=== PATIENT | female | born 1985 | race Two or more races ===

== ENCOUNTER 2016-12-17 10:47 | Inpatient (IN) | payer OTHER ==
[2016-12-17 11:16] VITALS: BMI 33.5
[2016-12-17] MEDS ORDERED: WITCH HAZEL 50% (TUCKS) 40 PAD/JAR PAD TP PRN (11:26)
[2016-12-17] MEDS ORDERED: BISACODYL 10 MG SUPP.RECT RC PRN (11:26)
[2016-12-17] MEDS ORDERED: BENZOCAINE 20% 57 GM BOTTLE TP PRN (11:26)
[2016-12-17] MEDS ORDERED: BENZOCAINE 28 GM HEMORRHOIDAL OINTMENT TP PRN (11:26)
[2016-12-17] MEDS ORDERED: METHYLERGONOVINE MALEATE 0.2 MG/1 ML AMP IM PRN (11:26)
[2016-12-17] MEDS ORDERED: ELECTROLYTE-148 SOLN 1,000 ML IV SCH (11:30)
[2016-12-17] MEDS ORDERED: OXYTOCIN 20 UNITS in 0.9% NS 1,000 ML IV SCH (11:30)
--- NOTE | 2016-12-17 11:31 | HP ---
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: No: Alzheimer's, CVA, Dementia, Migraine, Multiple Sclerosis, Peripheral Neuropathy, Parkinson's, Seizure, Syncope, TIA, Vertigo, Other Cardiovascular: No: AFIB, Aneurysm, Aortic Insufficiency, Aortic Stenosis, CAD, CHF, Deep Vein Thrombosis, HTN, Hyperlipdemia, IA, Mitral Insufficiency, Mitral Stenosis, Murmur, Pulmonary Hypertension, Other Pulmonary: No: Asthma, Bronchitis, Cancer, COPD, O2 Dependent, Pneumonia, Previously Intubated, Pulmonary Embolus, Pulmonary Fibrosis, Sleep Apnea, Other Gastrointestinal: No: Ascites, Cancer, Constipation, Crohn's Disease, Diverticulitis, Diverticulosis, Esophageal Varices, Gastritis, GERD, GI Bleed, Hemorrhoids, Hiatal Hernia, Inflamatory Bowel Disease, Irritable Bowel Disease, Pancreatitis, Peptic Ulcer Disease, Ulcerative Colitis, Other Hepatobiliary: No: Cirrhosis, Cholelithiasis, Cholecystitis, Choledocholithiasis , Hepatitis A, Hepatitis B, Hepatitis C, Other Renal/: No: Renal Failure, Renal Inusuff, BPH, Cancer, Hematuria, Hemodialysis , Neurogenic Bladder, Renal Calculi, UTI, Other Reproductive: No: Ectopic , Endometriosis, Fibroids, PID, Polycystic Ovary Syndrome, Postmenopausal, Other ...: 3 ...Para: 2 Psych: No: Addictions, Anxiety, Bipolar, Depression, Panic, Psychosis, Schizophrenia, Other Musculoskeletal: No: Bursitis, Chronic low back pain, Hemiparesis, Hemiplegia, Osteoarthritis, Paraplegia, Other Rheumatology: No: Fibromyalgia, Gout, Lupus, Rheumatoid Arthritis, Sarcoidosis, Vasculitis, Other ENT: No: Allergic Rhinitis, Sinusitis, Other Endocrine: No: [place]'s Disease, White's Disease, Diabetes Insipidus, Diabetes Mellitus, Hyperparathyroidism, Hyperthyroidism, Hypothyroidism, Osteopenia, SIADH, Other - Past Surgical History Past Surgical History: No: None, AAA Repair, AICD, Amputation, Appendectomy, Arthrosocopy, AV Fistula/Graft, Bariatric Surgery, Breast Biopsy, Bypass, CABG, Carotid Endarterectomy, Cataract Removal, Cholecystectomy, Colectomy, Colonoscopy, Colostomy, Craniotomy, , Cystectomy, Hernia Repair, Hysterectomy, Ileal Conduit, Ileosotomy, Joint Replacement, Kidney Transplant, Laminectomy, Liver Transplant, Mastectomy, Nephrectomy, Oopherectomy, Orchiectomy, Permanent Pacemaker, Prostatectomy, Splenectomy, Stent, Thoracotomy , TURP, Tonsillectomy, Tubal Ligation, Upper Endoscopy, Valve Replacement, Vasectomy, Vein Stripping/Ligation - Advance Directives Advance Directives: No: Living Will, Health Care Proxy, DNR, Organ Donor, Tissue Donor, MOLST - Smoking History Smoking history: Never smoked Have you smoked in the past 12 months: No - Alcohol/Substance Use Hx Alcohol Use: No History of Substance Use: denies: None, Cocaine, Heroin, Marijuana, Prescription , Tranquilizers - Social History Usual Living Arrangement: No: Alone, With Spouse, With Parent, With Significant Other, With Child, Assisted Living, Care Home, Other Home Medications - Allergies Allergies/Adverse Reactions: Allergies Allergy/AdvReac Type Severity Reaction Status Date / Time No Known Allergies Allergy Verified 12/16/16 17:53 - Home Medications Home Medications: Ambulatory Orders Ferrous Sulfate 1 tab PO DAILY 12/16/16 Vit #108/Iron/FA [ One Tablet] 1 tab PO DAILY 12/16/16 Review of Systems - Review of Systems Constitutional: reports: No Symptoms Eyes: reports: No Symptoms HENT: reports: No Symptoms Neck: reports: No Symptoms Cardiovascular: reports: No Symptoms Respiratory: reports: No Symptoms Gastrointestinal: reports: No Symptoms Genitourinary: reports: No Symptoms Breasts: reports: No Symptoms Reported Musculoskeletal: reports: No Symptoms Integumentary: reports: No Symptoms Neurological: reports: No Symptoms Endocrine: reports: No Symptoms Hematology/Lymphatic: reports: No Symptoms Psychiatric: reports: No Symptoms Physical Examination Constitutional: Yes: Well Nourished Eyes: Yes: WNL HENT: Yes: WNL Neck: Yes: WNL, Rigid Respiratory: Yes: WNL Gastrointestinal: Yes: WNL ...Rectal Exam: Yes: WNL (9cm) Extremities: Yes: WNL Neurological: Yes: WNL Assessment/Plan as above admit labs prepare for delivery
[2016-12-17 12:35] LABS: CALCIUM 8.2 mg/dL (8.5-10.1); COCKROFT - GAULT 109.497; CREATININE 0.9 mg/dL (0.55-1.02)
[2016-12-17 12:38] LABS: BASOPHIL 0.1 % (0-2.0); INR 0.96 (0.82-1.09); MCH 32.8 pg (25.7-33.7); MCHC 33.9 g/dl (32.0-36.0); MEAN CELL VOLUME 96.6 fl (80-96); MEAN PLT VOLUME 10.4 fl (7.5-11.1); NEUTROPHILS 93.6 % (42.8-82.8); PLATELET COUNT 125 K/MM3 (134-434); PROTHROMBIN TIME (PATIENT) 10.5 SEC (9.98-11.88); WHITE BLOOD COUNT 15.9 K/mm3 (4.0-10.0)
[2016-12-17 12:41] LABS: ACTIVATED PTT 28.5 SECONDS (26.9-34.4)
[2016-12-17] MEDS: IBUPROFEN 600 MG TABLET (FP) PO PRN (22:58)
[2016-12-17] MEDS: ACETAMINOPHEN 325 MG TABLET (FP) PO PRN (23:00)
[2016-12-18 08:33] LABS: BASOPHIL 0.2 % (0-2.0); EOSINOPHIL 0.5 % (0-4.5); MCHC 34.2 g/dl (32.0-36.0); MEAN CELL VOLUME 96.5 fl (80-96); MEAN PLT VOLUME 9.8 fl (7.5-11.1); PLATELET COUNT 105 K/MM3 (134-434); WHITE BLOOD COUNT 13.1 K/mm3 (4.0-10.0)
[2016-12-18] MEDS: DIPHTH,PERTUSS(ACELL),TET 0.5 ML DISP.SYRIN IM ONE (10:00)
[2016-12-18] MEDS ORDERED: INFLUENZA VACCINE 60 MCG/0.5 ML (P/F DISP.SYRIN 16-17) IM ONE (10:00)
--- NOTE | 2016-12-18 20:19 | PN ---
Post Progress Note - Subjective Subjective: 31 yo Para 3 status post normal vaginal delivery, seen and evaluated. Doing well. Post Day: 1 Type of Delivery: Vital Signs: Vital Signs Temperature 97.6 F 12/18/16 09:00 Pulse Rate 65 12/18/16 09:00 Respiratory Rate 18 12/18/16 09:00 Blood Pressure 130/94 12/18/16 09:00 O2 Sat by Pulse Oximetry (%) 100 12/17/16 12:30 Breast Exam: Yes: Soft Uterus: Yes: Fundus Firm Incision: Yes: Dressing dry and intact Abdomen/GI: Yes: Abdomen soft, Tolerating PO Lochia: Yes: Rubra Lochia, amount: Small Extremities: Yes: Calves non-tender Perineum: Yes: Intact Activity: Ambulating - Labs Labs: CBC WBC 13.1 K/mm3 (4.0-10.0) H 12/18/16 08:00 RBC 3.34 M/mm3 (3.60-5.2) L 12/18/16 08:00 Hgb 11.0 GM/dL (10.7-15.3) D 12/18/16 08:00 Hct 32.2 % (32.4-45.2) L 12/18/16 08:00 MCV 96.5 fl (80-96) H 12/18/16 08:00 MCHC 34.2 g/dl (32.0-36.0) 12/18/16 08:00 RDW 14.0 % (11.6-15.6) 12/18/16 08:00 Plt Count 105 K/MM3 (134-434) L 12/18/16 08:00 MPV 9.8 fl (7.5-11.1) 12/18/16 08:00 Neutrophils % 73.0 % (42.8-82.8) D 12/18/16 08:00 Lymphocytes % 19.4 % (8-40) D 12/18/16 08:00 Monocytes % 6.9 % (3.8-10.2) D 12/18/16 08:00 Eosinophils % 0.5 % (0-4.5) D 12/18/16 08:00 Basophils % 0.2 % (0-2.0) 12/18/16 08:00 Problem List - Problems (1) Status post vaginal delivery Code(s): [id number] - Assessment/Plan Status post vaginal delivery Stable Continue routine care
--- NOTE | 2016-12-18 20:21 | DS ---
[id number] Rate 18 12/18/16 09:00 Blood Pressure 130/94 12/18/16 09:00 O2 Sat by Pulse Oximetry (%) 100 12/17/16 12:30 Constitutional: Yes: Well Nourished Eyes: Yes: Conjunctiva Clear HENT: Yes: Atraumatic Neck: Yes: Supple, Trachea Midline Cardiovascular: Yes: Regular Rate and Rhythm Respiratory: Yes: Regular, CTA Bilaterally Gastrointestinal: Yes: Normal Bowel Sounds Pelvis: Yes: WNL Cervix: Yes: Normal Uterus: Yes: Normal ....Post : Yes: Uterus firm, Moderate lochia rubra Breast(s): Yes: Other (No engorgement) Neurological: Yes: Alert, Oriented ...Motor Strength: WNL Psychiatric: Yes: Alert, Oriented Labs: CBC, BMP 12/18/16 08:00 12/17/16 11:50 Delivery - Delivery Type of Anesthesia: Local Episiotomy/Laceration: Midline EBL (cc): 350 Delivery, Single - Stages of Labor Date 1st Stage Initiatied: 12/17/16 Time 1st Stage Initiated: 03:00 Date 2nd Stage Initiated: 12/17/16 Time 2nd Stage Initiated: 11:00 Date of Delivery: 12/17/16 Time of Delivery: 11:17 Time Placenta Delivered: 11:21 - 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 Drink at least eight (8) glasses of water daily in addition to other fluids. Ct Regular diet MEDICATIONS: Continue vitamins and iron as previously directed. Motrin and Tylenol may be taken for minor discomfort. ACTIVITY: Mild to moderate exercise may be started in two (2) weeks. Take frequent rest periods. Resume normal activity after six (6) week check up. WOUND CARE OF OPERATIVE SITE: Continue use of perineal bottle until vaginal discharge stops. Keep area clean. Shower daily. Keep abdominal wound dry. Report any drainage or redness to physician. Tub baths, tampons and douches are not permitted for [address] Breast feeding & or Bottle feeding BREAST CARE: (For those that are not breast feeding): If engorgement occurs: Wear tight fitting bra. Take Tylenol or Motrin for pain. Apply cold packs (ice in bags to each breast ) FAMILY PLANNING: There are many control alternatives to pursue and they should be discussed at your first office visit. You may resume sexual activity after your six (6) week check up. (Remember, breast feeding is not a contraceptive) NEXT PHYSICIAN APPOINTMENT: Be certain to call for a six (6) week appointment, unless otherwise directed. Call Clinic or got to Emergency Dept if you have any of the following: Heavy vaginal bleeding Painful urination Leg pain Unusual odor noted to vaginal bleeding High fever Red streaking noted on breast Referrals: Nik Shah MD [Staff Physician] - Disposition: HOME - Home Medications Comprehensive Discharge Medication List: Ambulatory Orders Ferrous Sulfate 1 tab PO DAILY 12/16/16 Vit #108/Iron/FA [ One Tablet] 1 tab PO DAILY 12/16/16 Acetaminophen [Tylenol .Regular Strength -] 650 mg PO Q3H PRN #0 tablet Ibuprofen [Motrin -] 200 mg PO Q4H PRN #0 tablet 12/18/16
[2016-12-18] MEDS: IBUPROFEN 600 MG TABLET (FP) PO PRN (21:30)
[2016-12-18] MEDS: ACETAMINOPHEN 325 MG TABLET (FP) PO PRN (21:31)
[2016-12-18] MEDS ORDERED: SENNOSIDES/DOCUSATE COMBO (SENNA PLUS) TABLET (UD) PO PRN (22:00)
--- NOTE | 2016-12-19 09:36 | PN ---
Post Progress Note - Subjective Subjective: no complains Post Day: 2 Type of Delivery: Vital Signs: Vital Signs Temperature 99.2 F 12/18/16 22:00 Pulse Rate 100 H 12/18/16 22:00 Respiratory Rate 18 12/18/16 22:00 Blood Pressure 133/83 12/18/16 22:00 O2 Sat by Pulse Oximetry (%) 100 12/17/16 12:30 Breast Exam: Yes: Soft. No: Engorged Uterus: Yes: Fundus Firm, Fundus below umbilicus, Non-tender Lochia: Yes: Rubra Lochia, amount: Moderate Extremities: Yes: Calves non-tender, Edema Perineum: Yes: Intact Activity: Ambulating - Labs Labs: CBC WBC 13.1 K/mm3 (4.0-10.0) H 12/18/16 08:00 RBC 3.34 M/mm3 (3.60-5.2) L 12/18/16 08:00 Hgb 11.0 GM/dL (10.7-15.3) D 12/18/16 08:00 Hct 32.2 % (32.4-45.2) L 12/18/16 08:00 MCV 96.5 fl (80-96) H 12/18/16 08:00 MCHC 34.2 g/dl (32.0-36.0) 12/18/16 08:00 RDW 14.0 % (11.6-15.6) 12/18/16 08:00 Plt Count 105 K/MM3 (134-434) L 12/18/16 08:00 MPV 9.8 fl (7.5-11.1) 12/18/16 08:00 Neutrophils % 73.0 % (42.8-82.8) D 12/18/16 08:00 Lymphocytes % 19.4 % (8-40) D 12/18/16 08:00 Monocytes % 6.9 % (3.8-10.2) D 12/18/16 08:00 Eosinophils % 0.5 % (0-4.5) D 12/18/16 08:00 Basophils % 0.2 % (0-2.0) 12/18/16 08:00 Assessment/Plan stable. plan discharge today
[2016-12-19 11:18] VITALS: BP 122/77; PULSE 62; TEMP 97.4
== END 2016-12-19 12:05 | disposition home or self-care (01) | DRG 560 ==
LOC: JLDR 10:47 → J3W 14:45
PROVIDERS: ADMIT Obstetrics & Gynecology; ATTEND Obstetrics & Gynecology
PROC: 0W8NXZZ Division of Female Perineum, External Approach (ICD-10-PCS; principal; 2016-12-17)
PROC: 10E0XZZ Delivery of Products of Conception, External Approach (ICD-10-PCS; 2016-12-17)
DX: O77.0 Labor and delivery complicated by meconium in amniotic fluid (principal); Z3A.39 39 weeks gestation of pregnancy; Z37.0 Single live birth
CPT/HCPCS: 36415; 59409; 80048; 85025; 85610; 85730; 86593; 86850; 86900; 86901; 90686; 90715; G0008

== ENCOUNTER 2023-01-08 10:00 | Inpatient (IN) | payer OTHER ==
[2023-01-14 09:44] VITALS: BMI 32.5
[2023-01-14] MEDS: ELECTROLYTE-148 SOLN 1,000 ML IV SCH ×2 (09:50→11:45)
[2023-01-14 10:00] LABS: BASO % 0.1 % (0-2.0); EOS % 1.1 % (0-4.5); HEMATOCRIT 35.2 % (32.4-45.2); LYMPH % 16.9 % (8-40); MCH 32.6 pg (25.7-33.7); MCHC 34.2 g/dl (32.0-36.0); MEAN CELL VOLUME 95.6 fl (80-96); MEAN PLT VOLUME 8.7 fl (7.5-11.1); MONO % 6.9 % (3.8-10.2); PLATELET COUNT 184 10^3/uL (134-434); RBC 3.69 M/mm3 (3.60-5.2); RDW 13.3 % (11.6-15.6); WHITE BLOOD COUNT 9.8 K/mm3 (4.0-10.0)
[2023-01-14 10:04] LABS: INR 1.03 (0.83-1.09)
[2023-01-14 10:07] LABS: ACTIVATED PTT 29.6 SECONDS (25.2-36.5)
[2023-01-14 10:21] LABS: POTASSIUM 3.7 mmol/L (3.5-5.1)
[2023-01-14 10:23] LABS: BLOOD UREA NITROGEN 4.8 mg/dL (7-18); CALCIUM 8.7 mg/dL (8.5-10.1)
[2023-01-14 10:26] LABS: CREATININE 0.5 mg/dL (0.55-1.3)
[2023-01-14] MEDS ORDERED: CITRIC ACID/SODIUM CITRATE 30 ML UNIT-DOSE CUP PO ONE (11:03)
[2023-01-14] MEDS ORDERED: morphine SULFATE/PF 1 MG/2 ML (2cc Syringe - QUVA) ONE (13:00)
[2023-01-14] MEDS ORDERED: FENTANYL CITRATE/PF 50 MCG/ML VIAL ONE (13:00)
[2023-01-14] MEDS ORDERED: KETOROLAC TROMETHAMINE 30 MG/1 ML VIAL ONE (13:01)
[2023-01-14] MEDS ORDERED: ONDANSETRON 4 MG/2 ML VIAL ONE (13:01)
[2023-01-14] MEDS ORDERED: OXYTOCIN 10 UNITS/ML VIAL ONE ×2 (13:01→13:21)
[2023-01-14] MEDS ORDERED: ceFAZolin SODIUM 1 GM VIAL ONE ×2 (13:01→13:15)
[2023-01-14] MEDS ORDERED: PHENYLEPHRINE HCL 10 MG/1 ML SINGLE DOSE VIAL ONE (13:15)
[2023-01-14] MEDS ORDERED: METHYLERGONOVINE MALEATE 0.2 MG/1 ML AMP IM PRN (13:56)
[2023-01-14] MEDS ORDERED: ACETAMINOPHEN 325 MG TABLET (FP) PO PRN (13:56)
[2023-01-14] MEDS ORDERED: morphine SULFATE/PF 1 MG/2 ML (2cc Syringe - QUVA) SPIN ONE (14:04)
[2023-01-14] MEDS ORDERED: ONDANSETRON 4 MG/2 ML VIAL IVPUSH PRN (14:04)
[2023-01-14] MEDS ORDERED: ACETAMINOPHEN 1000 MG/100 ML BAG IVPB ONE (14:05)
[2023-01-14] MEDS ORDERED: OXYTOCIN 20 UNITS in 0.9% NS 20 UNIT/1,000 ML INFUS.BAG IV ONE (15:12)
[2023-01-14] MEDS: OXYTOCIN 20 UNITS in 0.9% NS 20 UNIT/1,000 ML INFUS.BAG IV SCH (15:20)
[2023-01-14] MEDS: IBUPROFEN 800 MG/8 ML IJ IVPB PRN (17:23)
[2023-01-15] MEDS: OXYTOCIN 20 UNITS in 0.9% NS 20 UNIT/1,000 ML INFUS.BAG IV SCH (01:15)
[2023-01-15] MEDS: IBUPROFEN 800 MG/8 ML IJ IVPB PRN ×2 (01:15→09:14)
[2023-01-15] MEDS ORDERED: oxyCODONE HCL 5 MG TABLET PO PRN (01:56)
[2023-01-15 08:37] LABS: BASO % 0.1 % (0-2.0); EOS % 1.1 % (0-4.5); HEMATOCRIT 32.1 % (32.4-45.2); LYMPH % 11.1 % (8-40); MCH 32.7 pg (25.7-33.7); MCHC 34.2 g/dl (32.0-36.0); MEAN CELL VOLUME 95.8 fl (80-96); MEAN PLT VOLUME 8.2 fl (7.5-11.1); MONO % 6.1 % (3.8-10.2); NEUT % 81.6 % (42.8-82.8); PLATELET COUNT 156 10^3/uL (134-434); RBC 3.36 M/mm3 (3.60-5.2); RDW 13.9 % (11.6-15.6); WHITE BLOOD COUNT 10.9 K/mm3 (4.0-10.0)
[2023-01-15] MEDS ORDERED: BISACODYL 10 MG SUPP.RECT RC PRN (13:56)
[2023-01-15] MEDS: IBUPROFEN 600 MG TABLET (FP) PO PRN ×2 (16:03→19:53)
[2023-01-15] MEDS: SIMETHICONE 80 MG TAB.CHEW (FP) PO PRN ×2 (16:04→19:53)
[2023-01-16] MEDS: IBUPROFEN 600 MG TABLET (FP) PO PRN ×4 (00:05→18:26)
[2023-01-16] MEDS: SIMETHICONE 80 MG TAB.CHEW (FP) PO PRN ×4 (00:05→18:26)
[2023-01-16 10:36] VITALS: RESP 17
[2023-01-17] MEDS: SIMETHICONE 80 MG TAB.CHEW (FP) PO PRN ×3 (00:14→09:22)
[2023-01-17] MEDS: IBUPROFEN 600 MG TABLET (FP) PO PRN ×3 (00:14→09:19)
[2023-01-17 07:16] LABS: BASO % 0.3 % (0-2.0); EOS % 2.8 % (0-4.5); HEMATOCRIT 29.3 % (32.4-45.2); HEMOGLOBIN 9.9 GM/dL (10.7-15.3); LYMPH % 21.8 % (8-40); MCH 32.9 pg (25.7-33.7); MCHC 33.8 g/dl (32.0-36.0); MEAN CELL VOLUME 97.3 fl (80-96); MEAN PLT VOLUME 8.4 fl (7.5-11.1); MONO % 6.2 % (3.8-10.2); NEUT % 68.9 % (42.8-82.8); PLATELET COUNT 197 10^3/uL (134-434); RBC 3.01 M/mm3 (3.60-5.2); RDW 13.6 % (11.6-15.6); WHITE BLOOD COUNT 8.4 K/mm3 (4.0-10.0)
[2023-01-17 09:47] VITALS: BP 104/68; PULSE 65; TEMP 97.5
== END 2023-01-17 15:10 | disposition home or self-care (01) | DRG 540 ==
LOC: JLDR 01-14 08:08 → J3W 01-14 15:25
PROVIDERS: ADMIT Obstetrics & Gynecology; ATTEND Obstetrics & Gynecology
PROC: 10D00Z1 Extraction of Products of Conception, Low, Open Approach (ICD-10-PCS; principal; 2023-01-14)
PROC: 0UL70ZZ Occlusion of Bilateral Fallopian Tubes, Open Approach (ICD-10-PCS; 2023-01-14)
DX: O48.0 Post-term pregnancy (principal); Z3A.40 40 weeks gestation of pregnancy; O32.2XX0 Maternal care for transverse and oblique lie, not applicable or unspecified; Z37.0 Single live birth; Z30.2 Encounter for sterilization
CPT/HCPCS: 36415; 80048; 85025; 85610; 85730; 86780; 86850; 86900; 86901; 88302-TC; 88307-TC; 94010

== ENCOUNTER 2023-10-11 22:35 | Inpatient (IN) | payer OTHER ==
[2023-10-12] MEDS ORDERED: ONDANSETRON 4 MG/2 ML VIAL ONE ×2 (00:29→04:03)
[2023-10-12] MEDS ORDERED: ACETAMINOPHEN INJECTION 100 ML IVPB ONE ×2 (00:29→12:25)
[2023-10-12] MEDS: ACETAMINOPHEN 1000 MG/100 ML BAG IVPB ONE ×2 (00:38→07:59)
[2023-10-12 00:52] LABS: BASO % 0.4 % (0-2.0); EOS % 0.3 % (0-4.5); HEMATOCRIT 40.9 % (32.4-45.2); MCHC 34.2 g/dl (32.0-36.0); MEAN CELL VOLUME 93.7 fl (80-96); MEAN PLT VOLUME 8.7 fl (7.5-11.1); MONO % 5.1 % (3.8-10.2); NEUT % 73.2 % (42.8-82.8); PLATELET COUNT 219 10^3/uL (134-434); RBC 4.37 M/mm3 (3.60-5.2); RDW 13.9 % (11.6-15.6); WHITE BLOOD COUNT 10.5 K/mm3 (4.0-10.0)
[2023-10-12 00:56] LABS: INR 1.19 (0.83-1.09); PROTHROMBIN TIME (PATIENT) 13.8 SEC (9.7-13.0)
[2023-10-12 00:59] LABS: ACTIVATED PTT 34.1 SECONDS (25.2-36.5)
[2023-10-12 01:02] LABS: POTASSIUM 3.6 mmol/L (3.5-5.1)
[2023-10-12 01:04] LABS: ALBUMIN 3.5 g/dl (3.4-5.0); BLOOD UREA NITROGEN 5.2 mg/dL (7-18); CALCIUM 8.6 mg/dL (8.5-10.1); MAGNESIUM 1.8 mg/dL (1.8-2.4)
[2023-10-12 01:07] LABS: CREATININE 0.7 mg/dL (0.55-1.3)
[2023-10-12 01:09] LABS: BILIRUBIN,TOTAL 2.3 mg/dL (0.2-1); TOT PROT 7.2 g/dl (6.4-8.2)
[2023-10-12 01:20] LABS: URINE APPEARANCE CLEAR; URINE BILIRUBIN NEGATIVE (NEGATIVE); URINE COLOR YELLOW; URINE GLUCOSE (UA) NEGATIVE (NEGATIVE); URINE KETONE 2+ (NEGATIVE); URINE LEUK ESTERASE NEGATIVE (NEGATIVE); URINE NITRITE NEGATIVE (NEGATIVE); URINE PROTEIN NEGATIVE (NEGATIVE)
[2023-10-12] MEDS ORDERED: FAMOTIDINE 20 MG/50 ML IVPB 20 MG/50 ML MG IVPB ONE (01:20)
[2023-10-12] MEDS: FAMOTIDINE 20 MG/50 ML IVPB 20 MG/50 ML MG IVPB ONE (01:25)
[2023-10-12] MEDS: ONDANSETRON 4 MG/2 ML VIAL IVPUSH ONE ×2 (01:25→04:11)
[2023-10-12] MEDS: LACTATED RINGERS SOLUTION 1000 ML INFUS.BAG IV ONE (02:34)
[2023-10-12 03:22] LABS: BILIRUBIN,DIRECT 0.6 mg/dL (0.0-0.2)
[2023-10-12] MEDS ORDERED: PIPERACILLIN/TAZOB 4.5 GM 4.5 GM/100 ML BAG IVPB ONE (03:39)
[2023-10-12] MEDS: PIPERACILLIN/TAZOB 4.5 GM 4.5 GM in DEXTROSE 5%-WATER 100 ML IVPB ONE (03:45)
[2023-10-12] MEDS: morphine CARPU-JECT 2 MG/1 ML DISP.SYRIN IVPUSH ONE (04:11)
[2023-10-12] MEDS: SODIUM CHLORIDE 1,000 ML IV SCH (04:16)
[2023-10-12] MEDS ORDERED: ACETAMINOPHEN 1000 MG/100 ML BAG IVPB PRN ×2 (06:53→13:39)
[2023-10-12] MEDS ORDERED: ONDANSETRON 4 MG/2 ML VIAL IVPUSH PRN ×2 (06:54→13:39)
[2023-10-12 08:30] VITALS: BMI 27.1
[2023-10-12] MEDS: PIPERACILLIN/TAZOB 3.375 GM 3.375 GM in DEXTROSE 5%-WATER - 50 ML IVPB SCH ×2 (09:41→17:24)
[2023-10-12] MEDS ORDERED: PIPERACILLIN/TAZOB 3.375 GM 3.375 GM in DEXTROSE 5%-WATER - 50 ML IVPB SCH (10:00)
[2023-10-12] MEDS ORDERED: BUPIVACAINE HCL/PF 0.25% (2.5MG/ML) 10 ML VIAL ONE (11:11)
[2023-10-12] MEDS ORDERED: MIDAZOLAM HCL 2 MG/2 ML SINGLE DOSE VIAL ONE (11:16)
[2023-10-12] MEDS ORDERED: PROPOFOL 20 ML ONE (11:16)
[2023-10-12] MEDS ORDERED: ROCURONIUM BROMIDE 50 MG/5 ML SYRINGE ONE (12:06)
[2023-10-12] MEDS: BUPIVACAINE HCL/PF 0.25% (2.5MG/ML) 10 ML VIAL IJ ONE (12:26)
[2023-10-12] MEDS ORDERED: KETOROLAC TROMETHAMINE 30 MG/1 ML VIAL ONE (13:02)
[2023-10-12] MEDS ORDERED: NEOSTIGMINE METHYLSULFATE 0.5 MG/1 ML - 10 ML MDV ONE (13:04)
[2023-10-12] MEDS ORDERED: LACTATED RINGERS SOLUTION 1,000 ML IV SCH ×2 (13:30→13:39)
[2023-10-12 22:30] VITALS: RESP 20
[2023-10-13 06:34] VITALS: TEMP 98.6
[2023-10-13 08:05] LABS: BASO % 0.2 % (0-2.0); EOS % 1.5 % (0-4.5); HEMATOCRIT 41.1 % (32.4-45.2); HEMOGLOBIN 13.9 GM/dL (10.7-15.3); LYMPH % 28.7 % (8-40); MCH 31.9 pg (25.7-33.7); MCHC 33.7 g/dl (32.0-36.0); MEAN CELL VOLUME 94.6 fl (80-96); MEAN PLT VOLUME 8.6 fl (7.5-11.1); MONO % 5.7 % (3.8-10.2); NEUT % 63.9 % (42.8-82.8); PLATELET COUNT 219 10^3/uL (134-434); RBC 4.34 M/mm3 (3.60-5.2); RDW 13.6 % (11.6-15.6); WHITE BLOOD COUNT 8.9 K/mm3 (4.0-10.0)
[2023-10-13 08:35] LABS: POTASSIUM 3.8 mmol/L (3.5-5.1)
[2023-10-13 08:45] LABS: BLOOD UREA NITROGEN 5.7 mg/dL (7-18); CALCIUM 8.5 mg/dL (8.5-10.1)
[2023-10-13 08:46] LABS: ALBUMIN 3.3 g/dl (3.4-5.0)
[2023-10-13 08:47] LABS: CREATININE 0.6 mg/dL (0.55-1.3)
[2023-10-13 08:48] LABS: BILIRUBIN,TOTAL 2.5 mg/dL (0.2-1); TOT PROT 6.8 g/dl (6.4-8.2)
[2023-10-13 10:59] VITALS: BP 102/59; PULSE 70
== END 2023-10-13 12:29 | disposition home or self-care (01) | DRG 263 ==
LOC: JER 22:35 → JERBED 10-12 03:55 → J8W 10-12 05:36
PROVIDERS: ADMIT Internal Medicine; ATTEND Nurse Practitioner
PROC: 0FT44ZZ Resection of Gallbladder, Percutaneous Endoscopic Approach (ICD-10-PCS; principal; 2023-10-12 11:00)
DX: K80.00 Calculus of gallbladder with acute cholecystitis without obstruction (principal); R00.1 Bradycardia, unspecified; R11.2 Nausea with vomiting, unspecified; R10.11 Right upper quadrant pain; K82.1 Hydrops of gallbladder
CPT/HCPCS: 0241U-QW; 36415; 71045-TC-FY; 76705-TC; 80053; 81003; 82248; 83690; 83735; 84484; 84703; 85025; 85610; 85730; 86850; 86900; 86901; 87086; 88304-TC; 93005; 93010; 94760; 99285-25; J0131